=== PATIENT | female | born 1985 | race Caucasian/White ===

== ENCOUNTER 2023-02-22 06:26 | Emergency (ER) | payer SELFPAY ==
[~2023-02-22] VITALS: Ht 172.7 cm; Wt 65.8 kg
[~2023-02-22 06:26] MED LIST: PREN-96 PO
[2023-02-22 06:39] VITALS: BP 82/62; PULSE 122; RESP 16; O2SAT 97
== END 2023-02-22 07:52 | disposition left against medical advice (07) ==
LOC: ER 06:26
DX: R51.9 Headache, unspecified (principal); Z53.21 Procedure and treatment not carried out due to patient leaving prior to being seen by health care provider